=== PATIENT | male | born 1950 | race Caucasian/White ===

== ENCOUNTER → 2017-01-10 | Outpatient (CLI) | payer MEDICARE ==
[~2017-01-10] MED LIST: IOHEXOL 240 MG/ML 50ML VIAL. ONE; IOHEXOL 300 MG/ML 75 ML VIAL. IV ONE
--- NOTE | 2017-01-10 13:07 | RAD ---
CT scan of the abdomen and pelvis with contrast 01/10/2017 Clinical history: Changing bowel habits. GI bleed. Abdominal fullness for the last 3 days. Technique: After the oral and intravenous administration of contrast, contiguous, 5 mm axial sections were obtained through the abdomen and pelvis. 75 cc of Omnipaque 300 were administered intravenously during this examination. One or more of the following individualized dose reduction techniques were utilized for this study: 1. Automated exposure control. 2. Adjustment of the mA and/or kV according to patient size. 3. Use of iterative reconstruction technique. Findings: No previous imaging studies are available for comparison. Images through the lung bases demonstrate minimal dependent subsegmental atelectasis bilaterally. The liver, spleen, pancreas, adrenal glands and left kidney are within normal limits. An 1.1 cm well-defined fat-containing lesion is seen involving the lower pole of the right kidney. This is consistent with an angiomyolipoma. Mild to moderate atherosclerotic calcification of the abdominal aorta and its branches is seen. The abdominal aorta tapers normally. The gallbladder is contracted. No free fluid or free air is seen within the abdomen. There is no evidence of bowel obstruction. The appendix is well visualized and is within normal limits. A 2 cm rounded fat-containing lesion is seen involving the mesentery of the right lower quadrant of the abdomen, medially. 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 Images through the pelvis demonstrate the urinary bladder distended with urine. The prostate gland is enlarged likely related to BPH. Calcifications are seen within the pelvis consistent with phleboliths. No free fluid is seen. Multiple diverticula are seen involving the colon, particularly the sigmoid colon. No inflammatory changes are seen adjacent fat. A focal area of apparent wall thickening is seen involving the distal sigmoid colon. This measures 4.5 cm in length. An underlying mass lesion in this area is not excluded. Correlation with colonoscopy is recommended. Degenerative changes are seen involving the lower thoracic and throughout the lumbar spine and both hips. Impression: 4.5 cm focal area of wall thickening is seen involving the distal sigmoid colon. An underlying mass in this region is not excluded. Correlation with colonoscopy is recommended.
== END | disposition home or self-care (01) ==
LOC: CT 08:53
PROVIDERS: ATTEND Internal Medicine Gastroenterology
DX: K92.2 Gastrointestinal hemorrhage, unspecified (principal); I70.0 Atherosclerosis of aorta; M47.894 Other spondylosis, thoracic region; M47.896 Other spondylosis, lumbar region; M16.0 Bilateral primary osteoarthritis of hip
CPT/HCPCS: 74177; Q9966; Q9967